=== PATIENT | female | born 1995 | race Caucasian/White ===

== ENCOUNTER → 2024-07-26 12:53 | Outpatient (REF) | payer OTHER, SELFPAY | LOC: HWRAD 12:53 | PROVIDERS: ATTENDING PHYSICIAN Nurse Practitioner Family; FAMILY PHYSICIAN Physician Assistant Medical | DX: Z34.90 Encounter for supervision of normal pregnancy, unspecified, unspecified trimester (principal) | CPT/HCPCS: 76801 ==

== ENCOUNTER 2024-09-12 12:11 | Emergency (ER) | payer BC, SELFPAY ==
[2024-09-12 12:15] VITALS: BP 143/87
[2024-09-12 12:16] VITALS: BP 143/87
[2024-09-12 12:35] LABS: % Basophils 0.5 % (0-2); % Eosinophils 1.2 % (0-6); % Immature Granulocytes 0.5 % (0-0.5); % Monocytes 6.9 % (1.7-9.3); % Neutrophils 68.9 % (42.2-75.2); Absolute Eosinophils 0.1 10^3/uL (0-0.7); Absolute Lymphocytes 1.8 10^3/uL (1.2-3.4); Absolute Monocytes 0.6 10^3/uL (0.1-0.6); Absolute Neutrophils 5.7 10^3/uL (1.4-6.5); Hematocrit 40.3 % (37.0-47.0); Mean Corp Hgb Conc. 34.7 g/dL (33.0-37.0); Mean Corpuscular Hgb 32.7 pg (27.0-31.0); Mean Corpuscular Volume 94.2 fL (81.0-99.0); Mean Platelet Volume 10.1 fL (7.4-10.4); Nucleated Red Blood Cells % 0 %; Platelet Count 189 10^3/uL (130-400); Red Blood Cell Count 4.28 10^6/uL (4.20-5.40); Red Cell Dist. Width 13.1 % (11.5-14.5); White Blood Cell Count 8.3 10^3/uL (4.8-10.8)
[2024-09-12 13:01] LABS: ALT (SGPT) 17 U/L (0-35); AST (SGOT) 21 U/L (14-36); Albumin 3.9 g/dl (3.5-5.0); Alkaline Phosphatase 50 U/L (38-126); Blood Urea Nitrogen 8 mg/dl (7-17); Calcium 8.9 mg/dl (8.4-10.2); Carbon Dioxide 23 mmol/L (22-30); Chloride 105 mmol/L (98-107); Glucose 85 mg/dl (70-99); Magnesium 1.8 mg/dl (1.6-2.3); Potassium 4.3 mmol/L (3.5-5.1); Sodium 137 mmol/L (135-145); Total Bilirubin 0.2 mg/dl (0.2-1.3); Total Protein 6.5 g/dl (6.3-8.2); eGFR > 60.00
[2024-09-12 13:03] VITALS: BP 109/68
--- NOTE | 2024-09-12 13:29 | ED.GENMED ---
History of Present Illness
General
Chief Complaint: Heart Rate Problem
Time Seen by Provider: 09/12/24 12:20
History of Present Illness
History of Present Illness:
TIME OF INITIAL ENCOUNTER: 12:15 PM
HPI:
Patient presents due to palpitations. She is approximately 19 weeks . EMS was called and found her to be in SVT. She has never had any dysrhythmia in the past. She reports no direct related symptoms. Prior to my initial
evaluation she did convert spontaneously out of SVT back into a normal sinus rhythm.
EXAM:
GENERAL: Well appearing in no distress
HEENT: Moist oral mucosa
CARDIOVASCULAR: No murmurs, normal heart rate, regular rhythm, No chest wall tenderness
PULMONARY: No respiratory distress, breath sounds are clear and equal
ABDOMEN: Soft with no peritoneal signs, no tenderness
NEUROLOGIC: Excellent strength all extremities, no coordination deficits
PSYCHIATRIC: Appropriate mental status, normal insight and judgement
EXTREMITIES: Nontender, no edema, moves all extremities equally
SKIN: No rash, no lesions
NUMBER AND COMPLEXITY OF PROBLEMS ADDRESSED AT THE ENCOUNTER
� Chronic conditions affecting care: No significant past medical history
� Acute Exacerbation and/or Progression of Chronic Illness: This is an acute problem
� Differential Diagnosis includes: SVT, atrial dysrhythmia, electrolyte abnormality, thyroid disease, anemia
AMOUNT AND/OR COMPLEXITY OF DATA TO BE REVIEWED AND ANALYZED
� I performed an independent evaluation of and my interpretation is:
EKG: Sinus 89, nonspecific ST abnormality, normal intervals, rightward axis deviation
CT:
X-rays:
Laboratory Studies: CBC and chemistries including TSH unremarkable
Other:
� Review of other/old records: No old records available for review in [facility]
� Clinical information was obtained by an independent historian: I spoke to family at bedside
� Prescriptions/Medications Considered but not given:
� Further testing considered but not performed: Considered negative chronotropic however the patient is therefore we will hold off on any other medications at this time
RISK OF COMPLICATIONS AND/OR MORBIDITY OR MORTALITY OF PATIENT MANAGEMENT
� Social determinants of health affecting care: Lives at home, is currently
� Discussion with other providers: None needed
� Escalation of care including admission/observation vs risk of discharge considered: The patient symptom spontaneously improved
ANY OTHER UPDATES:
1 PM: heart rate is normal
1:30 PM: On reassessment, the patient remains in a sinus rhythm. Lab work is unremarkable. She is to follow-up with cardiology.
Phy Exam
Physical Exam
Physical Exam:
See HPI
Course
Orders/Labs/Results
Orders:
Orders
09/12/24 12:15
ECG [Electrocardiogram (*1)] Urgent
Reason for Study: Tachycardia
09/12/24 12:16
EKG- Treatment ONCE
09/12/24 12:22
Complete Blood Count/With Diff Urgent
Comprehensive Metabolic Panel Urgent
Magnesium Urgent
TSH Reflex To Free T4 Urgent
Abnormal Lab Results
09/12/24
12:22
MCH 32.7 H pg
(27.0-31.0)
09/12/24 12:22
09/12/24 12:22
Vital Signs
Initial and Last Documented VS:
Initial Vital Signs
BP
143/87
09/12/24 12:15
Last Documented Vital Signs
Temp Pulse Resp BP Pulse Ox
36.7 C 74 18 109/68 99
09/12/24 12:16 09/12/24 13:30 09/12/24 13:34 09/12/24 13:03 09/12/24 13:34
*Critical Care Note
Total Time (30-74mins, 75-104mins- exclusive of procedures): Not Applicable
ED Attending Note
-
Portions of this chart may have been created with voice recognition software.� Occasional wrong word or��sound alike� substitutions may have occurred due to the inherent limitations of voice recognition software.
Discharge Plan
Departure
Patient Disposition: Home (Routine Discharge)
Date of Disposition: 09/12/24
Time of Disposition: 13:36
Patient with high blood pressure during this ER visit?: Yes
Discharge Problem:
SVT (supraventricular tachycardia)
Instructions: Supraventricular tachycardia (SVT), BLOOD PRESSURE
Referrals:
Анна Ko PA [Family Provider] -
Ronan Lynch MD [Active] - Follow up in 2-3 days
Activity Restrictions/Additional Instructions:
I reviewed the rhythm strip that EMS obtained and showed SVT with a rate of 169. Basic blood work is normal. I recommend that you follow-up with a assembling machine operator such as Dr. Lynch. heart rates were normal.
Interventions
Interventions:
*General Assessment Last Done: 09/12/24 12:16
ED- Fall Risk Assessment Last Done: 09/12/24 12:22
ED- Cardiac Assessment Last Done: 09/12/24 12:22
ED- Pulmonary Assessment Last Done: 09/12/24 12:22
Discharge Date and Time
Print Language: ARABIC
[2024-09-12 13:31] LABS: TSH Reflex To Free T4 2.79 uIU/ml (0.47-4.68)
== END 2024-09-12 14:02 | disposition home or self-care (01) ==
LOC: EMR 12:11
PROVIDERS: EMERGENCY PHYSICIAN Emergency Medicine; FAMILY PHYSICIAN Physician Assistant Medical
DX: O99.412 Diseases of the circulatory system complicating pregnancy, second trimester (principal); I47.10 Supraventricular tachycardia, unspecified; Z3A.19 19 weeks gestation of pregnancy
CPT/HCPCS: 99284; 80053; 83735; 84443; 85025; 93005

== ENCOUNTER → 2024-09-21 14:12 | Outpatient (REF) | payer BC, SELFPAY | LOC: PNTC 14:12 | PROVIDERS: ATTENDING PHYSICIAN Obstetrics & Gynecology | DX: Z34.02 Encounter for supervision of normal first pregnancy, second trimester (principal) | CPT/HCPCS: 76805 ==

== ENCOUNTER → 2024-10-27 09:13 | Outpatient (REF) | payer OTHER, SELFPAY | LOC: RCS 09:13 | PROVIDERS: ATTENDING PHYSICIAN Internal Medicine Cardiovascular Disease; FAMILY PHYSICIAN Physician Assistant Medical | DX: R00.2 Palpitations (principal); I47.10 Supraventricular tachycardia, unspecified | CPT/HCPCS: 93306 ==

== ENCOUNTER 2025-02-01 09:15 | Inpatient (IN) | payer OTHER, SELFPAY ==
[2025-02-01 09:21] VITALS: BP 119/70; BMI 32.2
[2025-02-01] MEDS: LR 1000 IV ×2 (09:45→10:52)
[2025-02-01] MEDS: TYLENOL 1000 MG PO (10:15)
[2025-02-01 10:18] LABS: Hematocrit 38.7 % (37.0-47.0); Hemoglobin 13.7 g/dL (12.0-16.0); Mean Corp Hgb Conc. 35.4 g/dL (33.0-37.0); Mean Corpuscular Hgb 31.9 pg (27.0-31.0); Mean Platelet Volume 10.9 fL (7.4-10.4); Platelet Count 211 10^3/uL (130-400); White Blood Cell Count 9.4 10^3/uL (4.8-10.8)
[2025-02-01] MEDS: BICITRA 30 ML PO (10:41)
[2025-02-01] MEDS: ANCEF IV (10:43)
[2025-02-01] MEDS: ANCEF 10 IV (11:21)
[2025-02-01] MEDS: PITOCIN 30 UNITS/NSS 500 ML IV (12:55)
[2025-02-01] MEDS: MORPHINE SULFATE 4 MG IV (14:06)
[2025-02-01] MEDS: TORADOL 15 MG IV ×2 (14:51→21:12)
[2025-02-01] MEDS: TYLENOL 650 MG PO (23:46)
[2025-02-02] MEDS: TORADOL 15 MG IV ×2 (03:15→09:26)
[2025-02-02 05:05] LABS: Hematocrit 34.6 % (37.0-47.0); Mean Corp Hgb Conc. 34.7 g/dL (33.0-37.0); Mean Corpuscular Hgb 32.3 pg (27.0-31.0); Mean Corpuscular Volume 93.3 fL (81.0-99.0); Mean Platelet Volume 10.8 fL (7.4-10.4); Platelet Count 203 10^3/uL (130-400); Red Blood Cell Count 3.71 10^6/uL (4.20-5.40); Red Cell Dist. Width 12.8 % (11.5-14.5); White Blood Cell Count 14.1 10^3/uL (4.8-10.8)
[2025-02-02] MEDS: TYLENOL 650 MG PO ×2 (05:18→21:49)
[2025-02-02] MEDS: SENOKOT-S 1 TABLET PO (09:08)
[2025-02-02] MEDS: PRENATAL PLUS 1 TABLET PO (09:08)
--- NOTE | 2025-02-02 11:16 | W.PN.ANS.POP ---
Anesthesia Post Operative
- Anesthesia Post Op Note
Vital Signs Stable-See Nursing Note: Yes
Airway Patent: Yes
Adequate Pain Control: Yes
Change in Mental Status: No
Current Postoperative Nausea & Vomiting: No
Anesthesia Complications: No
General Anesthetic Recall: No
Unplanned Admission: No
Post Op Hydration Adequate: Yes
[2025-02-02] MEDS: TORADOL IV (15:35)
[2025-02-02] MEDS: MOTRIN 600 MG PO ×2 (15:47→21:49)
[2025-02-03] MEDS: TYLENOL 650 MG PO ×4 (05:12→22:24)
[2025-02-03] MEDS: MOTRIN 600 MG PO ×4 (05:12→22:25)
[2025-02-03] MEDS: PRENATAL PLUS 1 TABLET PO (10:17)
[2025-02-03] MEDS: SENOKOT-S 1 TABLET PO (10:17)
[2025-02-03 13:12] LABS: Syphilis/T. pallidum Ab Reflex Negative (Negative)
[2025-02-04] MEDS: MOTRIN 600 MG PO ×2 (04:34→10:05)
[2025-02-04] MEDS: TYLENOL 650 MG PO ×2 (04:34→10:07)
--- NOTE | 2025-02-04 08:49 | W.DS.TRANS ---
DC Summary - [employer]
-
Discharge Instructions:
Discharge Diagnosis/Procedures delivered via section, breech
presentation
Diet No restrictions
Activity No strenuous activity
Driving Restrictions No driving for 2 weeks
Bathing Restrictions OK to Shower
Instructions:
Stand-Alone Forms: [facility]
Changes to Home Medications: No
Discharge Medications:
DC Medications w/original date entered in [employer]
Tablet 1 tab PO DAILY 02/01/25
acetaminophen 325 mg tablet 650 mg (2 x 325 mg) PO Q4HPRN PRN mild pain #1 tab 02/04/25
ibuprofen 600 mg tablet 600 mg PO Q6HPRN PRN cramps #60 tabs 02/04/25
Home Medication Changes
Pending Results: No
Total time spent discharging patient (in min): 30
--- NOTE | 2025-02-04 08:50 | W.DCSUMMARY ---
Discharge Summary
Discharge Data
Date of Admission: 02/01/25
Date of Discharge: 02/04/25
-
Pending Results: No
Hospital Course
Patient is a 30yo who presented to Labor and Delivery on 02/01 for scheduled primary section for breech presentation. She declined external cephalic version. She underwent primary low transverse section on 02/01 delivering a
viable male from mynor breech presentation. weighed 9lb 9oz. The procedure was uncomplicated. The estimated blood loss was 645mL. On postoperative day one, she was doing well with no complaints. She was tolerating a regular diet,
voiding spontaneously and passing flatus. Her hemoglobin was 12.0. On postoperative day, she was doing well. On postoperative day 3, she was meeting all postoperative milestones. She was tolerating a regular diet, voiding spontaneously, passing
flatus and had a bowel movement. She was stable for discharge home. Discharge instructions and return precautions were discussed and all questions were answered prior to discharge. She was instructed to follow up in the office in 2 weeks for an
incision check.
Discharge Plan
-
Patient Disposition: Home (Routine Discharge)
Discharge Diagnosis/Procedures: delivered via section, breech presentation
Condition: Good
Diet: No restrictions
Activity: No strenuous activity
Driving Restrictions: No driving for 2 weeks
Bathing Restrictions: OK to Shower
Stand Alone Forms: [facility] Delivery
Referrals:
Osmany Mcnair MD [Active] - in two weeks
UNKNOWN - PT DOES,NOT KNOW [Family Provider] -
Prescriptions:
New
acetaminophen 325 mg Tablet
650 mg PO Q4HPRN PRN (Reason: mild pain) Qty: 1 0RF
ibuprofen 600 mg Tablet
600 mg PO Q6HPRN PRN (Reason: cramps) Qty: 60 0RF
Continued
Tablet
1 tab PO DAILY
Discharge Orders:
Discharge Patient (As Directed); Ordered 02/04/25
Ordered By: Venus Covarrubias
Discharge Date and Time
Print Language: SWEDISH
[2025-02-04] MEDS: SENOKOT-S 1 TABLET PO (10:05)
[2025-02-04] MEDS: PRENATAL PLUS 1 TABLET PO (10:05)
== END 2025-02-04 12:27 | disposition home or self-care (01) | DRG 788 ==
LOC: LDRP 09:15
PROVIDERS: ADMITTING PHYSICIAN Obstetrics & Gynecology
PROC: 10D00Z1 Extraction of Products of Conception, Low, Open Approach (ICD-10-PCS; 2025-02-01)
DX: O64.1XX0 Obstructed labor due to breech presentation, not applicable or unspecified (principal); Z3A.39 39 weeks gestation of pregnancy; Z37.0 Single live birth
CPT/HCPCS: 36415; 85027; 86780; 86850; 86900; 86901